=== PATIENT | male | born 1970 | race African-American/Black ===

== ENCOUNTER 2021-11-20 07:08 | Day surgery (SDC) | payer BC ==
[~2021-11-20] VITALS: Ht 182.9 cm; Wt 102.1 kg
[~2021-11-20 07:08] MED LIST: ADLT ASA LOW81 MG PO; FLONASE AL50 MCG/ACT IN; LIPITOR20 MG PO; LISINOPRIL20 M1 PO; NAPROSYN375 MG PO; PRILOSEC20 MG/CAP PO
[2021-11-20 09:21] VITALS: BP 130/83
== END 2021-11-20 09:10 | disposition home or self-care (01) | DRG 951 ==
LOC: ENDO 07:08
PROVIDERS: ATTEND Surgery
PROC: 0DJD8ZZ Inspection of Lower Intestinal Tract, Via Natural or Artificial Opening Endoscopic (ICD-10-PCS; principal; 2021-11-20)
DX: Z12.11 Encounter for screening for malignant neoplasm of colon (principal)

== ENCOUNTER 2022-03-21 05:31 | Emergency (ER) | payer BC ==
[~2022-03-21] VITALS: Ht 182.9 cm; Wt 100.0 kg
[2022-03-21 05:57] LABS: HEMATOCRIT 46.7 % (39.0-50.0); HEMOGLOBIN 14.3 g/dl (14.0-18.0); IMMATURE GRANULOCYTES 0.4 % (0.0-5.0); MEAN CELL VOLUME 84.1 fL CALC (80.0-100.0); MEAN CORPUSCULAR HGB 25.8 pG CALC (26.0-32.0); MEAN CORPUSCULAR HGB CONC 30.6 g/dL CAL (32.0-36.0); NEUT# 2.8 thou/uL (1.82-7.42); RED BLOOD COUNT 5.55 mill/uL (4.70-6.10)
[2022-03-21 06:21] LABS: ALKALINE PHOSPHATASE 71 u/l (38-126); AMYLASE 141 u/l (30-110); ANION GAP 9 (6-22 (CALC)); BUN 9 mg/dL (9-20); BUN/CREATININE RATIO 11 (12-20 (CALC)); CARBON DIOXIDE 28 mmol/l (22-30); CHLORIDE 108 mmol/l (95-108); CREATININE 0.9 mg/dL (0.7-1.3); GFR FOR AFR.AMER. > 60 ML/MIN (>=60 (CALC)); GFR OTHER RACES > 60 ML/MIN (>=60 (CALC)); LIPASE 244 u/l (23-300); POTASSIUM 3.9 mmol/l (3.5-5.1); SGOT/AST 20 u/l (17-59); SODIUM 141 mmol/l (137-146); TOTAL PROTEIN 6.8 g/dL (6.3-8.2)
[2022-03-21 06:23] LABS: ACT PARTIAL THROMBO TIME 20.4 SECONDS (20.0-32.5); PROTHROMBIN TIME 10.5 SECONDS (9.0-12.5)
[2022-03-21] MEDS ORDERED: APPLE CIDER PO (06:27)
[2022-03-21 06:29] LABS: D-DIMER 0.17 mg/L (0.19-0.60)
[2022-03-21 06:32] LABS: MYOGLOBIN 19 ng/mL (0 - 121)
[2022-03-21 07:05] LABS: URINE BILIRUBIN - DIPSTICK NEGATIVE (NEGATIVE); URINE BLOOD DIPSTICK NEGATIVE (NEGATIVE); URINE COLOR YELLOW; URINE GLUCOSE - DIPSTICK NEGATIVE (NEGATIVE); URINE KETONE NEGATIVE (NEGATIVE); URINE LEUK ESTERASE NEGATIVE (NEGATIVE); URINE PROTEIN - DIPSTICK NEGATIVE (NEG-TRACE); URINE SPECIFIC GRAVITY 1.025; URINE UROBILINOGEN - DIPSTICK 0.2 E.U./dL (0.2)
[2022-03-21 07:08] LABS: URINE NITRITE - DIPSTICK NEGATIVE (Negative)
[2022-03-21 10:00] VITALS: BP 129/85
[2022-03-21 11:00] VITALS: BP 118/81
[2022-03-21 11:21] VITALS: BP 124/80
[2022-03-21 11:31] VITALS: BP 124/83
[2022-03-21 12:04] VITALS: BP 124/83
== END 2022-03-21 12:04 | disposition short-term general hospital (02) | DRG 313 ==
LOC: ED 05:31
PROVIDERS: Family Medicine
DX: R07.9 Chest pain, unspecified (principal); R79.89 Other specified abnormal findings of blood chemistry; I10 Essential (primary) hypertension; Z20.822 Contact with and (suspected) exposure to COVID-19
CPT/HCPCS: J1650